=== PATIENT | male | born 1945 | race Caucasian/White ===

== ENCOUNTER 2016-03-31 20:22 | Inpatient (IN) | payer MEDICARE, MEDICAID ==
[~2016-03-31] VITALS: Ht 175.3 cm; Wt 77.6 kg
[~2016-03-31 20:22] MED LIST: AMLO5TAB4 PO; ASPI81TA2 PO; ATOR20TA PO; DOCU250C75 PO; ENAL20TA70 PO; FERR-58 PO; HYDR-3652 PO; METO25TA6 PO; TAMS0.4C34 PO; VALP250S11 PO
[2016-03-31] MEDS ORDERED: IV NS 0.9% 1,000 ML BAG IV ONE (21:00)
[2016-03-31] MEDS ORDERED: VANCOMYCIN 1 GM in IV D5W 250 ML IV ONE (21:00)
[2016-03-31] MEDS ORDERED: CEFTRIAXONE 1GM BAG (ER ONLY) 1 GM/50 ML PIGGYBACK IV ONE (21:00)
[2016-03-31 21:10] LABS: BASOPHILS # (AUTO) 0.1 /CMM (0.0-0.2); DIFF TOTAL % 100 %; EOSINOPHILS % (AUTO) 0.2 % (0.0-6.0); HEMATOCRIT 44 % (39-51); HEMOGLOBIN 14.2 g/dL (13.5-17.5); LYMPHOCYTES # (AUTO) 1.3 /CMM (0.8-4.8); LYMPHOCYTES % (AUTO) 22.3 % (20.0-44.0); MEAN CORPUSCULAR HEMOGLOBIN 31 PG (26.0-33.0); MEAN CORPUSCULAR HGB CONC 33 g/dl (31.0-36.0); MEAN CORPUSCULAR VOLUME 96 fL (80-96); MONOCYTES # (AUTO) 0.5 /CMM (0.1-1.30); MONOCYTES % (AUTO) 8.4 % (2.0-12.0); NEUTROPHILS % (AUTO) 67.1 % (43.0-81.0); PLATELET COUNT (AUTO) 206 /CMM (150-450); RED BLOOD CELL COUNT(AUTO) 4.58 MIL/uL (4.5-6.0); WHITE BLOOD COUNT (AUTO) 5.9 K/uL (4.3-11.0)
[2016-03-31 21:21] LABS: CALCIUM, SERUM 8.8 mg/dL (8.5-10.1); CREATININE 0.6 mg/dL (0.6-1.3); POTASSIUM 4.3 mmol/L (3.5-5.1)
[2016-03-31 21:26] LABS: ALBUMIN 3.2 g/dL (3.4-5.0); BILIRUBIN,DIRECT 0.1 mg/dL (0.0-0.2); BILIRUBIN,TOTAL 0.5 mg/dL (0.2-1.0); INDIRECT BILIRUBIN 0.4 mg/dL (0.0-1.1); INR 1.2 (0.87-1.13); PROTHROMBIN TIME 12.6 SECS (9.5-12.7); TOTAL PROTEIN, SERUM 6.7 g/dL (6.4-8.2)
[2016-03-31 21:31] LABS: LACTIC ACID 1.1 mmol/L (0.4-2.0)
[2016-03-31] MEDS ORDERED: VANCOMYCIN 1 GM VIAL ONE (21:38)
[2016-03-31] MEDS ORDERED: CEFTRIAXONE 1GM BAG (ER ONLY) 50 ML IV ONE (21:38)
[2016-03-31] MEDS ORDERED: IV SET PRIMARY 1 EA INFUS.SET MC ONE (21:39)
[2016-03-31] MEDS ORDERED: IV D5W 250 ML IV ONE (21:39)
[2016-03-31] MEDS ORDERED: IV NS 0.9% 1,000 ML ONE (21:39)
[2016-03-31] MEDS ORDERED: IV SET PRIMARY PUMP SET 1 EA INFUS.SET MC ONE (21:39)
[2016-03-31] MEDS ORDERED: LORA0.5T PO (22:19)
[2016-03-31] MEDS ORDERED: DILT60TA35 PO (22:19)
[2016-03-31] MEDS ORDERED: NA P133E RC (22:19)
[2016-03-31] MEDS ORDERED: TAMS-12 PO (22:19)
[2016-03-31] MEDS ORDERED: ALBU2.5V38 IH (22:19)
[2016-03-31] MEDS ORDERED: APIX5TAB PO (22:19)
[2016-03-31] MEDS ORDERED: DOCU-170 PO (22:19)
[2016-03-31] MEDS ORDERED: IPRA0.2S9 IH (22:19)
[2016-03-31] MEDS ORDERED: FURO-145 PO (22:19)
[2016-03-31] MEDS ORDERED: DIGO125T PO (22:19)
[2016-03-31] MEDS ORDERED: METO50TA3 PO (22:27)
[2016-03-31] MEDS ORDERED: ATOR10TA PO (22:27)
[2016-03-31] MEDS ORDERED: PRED20TA PO (22:27)
[2016-03-31] MEDS ORDERED: MAGN400T29 PO (22:27)
[2016-03-31] MEDS ORDERED: AMIN30LI27 PO (22:27)
[2016-03-31] MEDS ORDERED: MULT1TAB11 PO (22:27)
[2016-03-31] MEDS ORDERED: ACET-868 PO (22:50)
[2016-03-31] MEDS ORDERED: ONDA4TAB5 PO (22:50)
[2016-03-31] MEDS ORDERED: ASCO500T9 PO (22:50)
[2016-03-31] MEDS ORDERED: SENN-18 PO (22:50)
[2016-03-31] MEDS ORDERED: ZINC220C6 PO (22:50)
[2016-03-31] MEDS ORDERED: TRAZ-144 PO (22:50)
[2016-03-31] MEDS ORDERED: ENAL5TAB36 PO (22:50)
[2016-03-31] MEDS ORDERED: PANT40TA2 PO (22:50)
[2016-04-01] VITALS (9 sets, daily range): BP systolic 155–180; BP diastolic 64–116
[2016-04-01] MEDS ORDERED: ACETAMINOPHEN 325 MG TABLET PO PRN
[2016-04-01] MEDS ORDERED: IPRATROPIUM NEB FS 0.5 MG/2.5 ML AMPUL.NEB NEB PRN
[2016-04-01] MEDS ORDERED: ENOXAPARIN SODIUM 40 MG/0.4 ML DISP.SYRIN SQ SCH
[2016-04-01] MEDS ORDERED: ALBUTEROL FS 2.5 MG/0.5 ML VIAL.NEB NEB PRN
[2016-04-01] MEDS ORDERED: CEFEPIME 1 GM VIAL IM SCH
[2016-04-01] MEDS ORDERED: ONDANSETRON HCL/PF 4 MG/2 ML VIAL IV PRN
[2016-04-01] MEDS ORDERED: ENOXAPARIN SODIUM 40 MG/0.4 ML DISP.SYRIN SQ ONE (00:51)
[2016-04-01] MEDS ORDERED: IV SET PRIMARY PUMP SET 1 EA INFUS.SET MC ONE (00:51)
[2016-04-01] MEDS ORDERED: IV D5W 50 ML IV ONE (00:51)
[2016-04-01] MEDS ORDERED: CEFEPIME 1 GM in IV D5W 50 ML IV SCH ×2 (01:00→08:24)
[2016-04-01] MEDS ORDERED: CEFEPIME 1 GM VIAL ONE (01:22)
[2016-04-01] MEDS ORDERED: IV NS 0.9% 250 ML IV ONE (01:33)
[2016-04-01] MEDS ORDERED: ACETAMINOPHEN 325 MG TABLET ONE (03:26)
[2016-04-01] MEDS ORDERED: IPRATROPIUM NEB FS 0.5 MG/2.5 ML AMPUL.NEB NEB SCH ×2 (07:30)
[2016-04-01] MEDS ORDERED: ALBUTEROL FS 2.5 MG/0.5 ML VIAL.NEB NEB SCH ×2 (07:30)
[2016-04-01] MEDS ORDERED: FEE PK DOSING 1 MIN EA MC ONE (08:23)
[2016-04-01] MEDS: PANTOPRAZOLE 40 MG TABLET.DR PO SCH (08:42)
[2016-04-01] MEDS ORDERED: FUROSEMIDE 20 MG TABLET PO SCH (09:00)
[2016-04-01] MEDS ORDERED: NA PHOS,M-B/NA PHOS,DI-BA 1 EA ENEMA RC PRN (09:00)
[2016-04-01] MEDS: VANCOMYCIN 1 GM in IV D5W 250 ML IV SCH ×2 (09:27→21:33)
[2016-04-01] MEDS: DOCUSATE SODIUM 100 MG CAPSULE PO SCH ×2 (09:31→17:15)
[2016-04-01] MEDS: ZINC SULFATE 220 MG CAPSULE PO SCH (09:31)
[2016-04-01] MEDS: ASPIRIN 81 MG TAB.CHEW PO SCH (09:31)
[2016-04-01] MEDS: DIGOXIN 0.125 MG TABLET PO SCH (09:32)
[2016-04-01] MEDS: predniSONE 20 MG TABLET PO SCH (09:33)
[2016-04-01] MEDS: METOPROLOL TARTRATE 50 MG TABLET PO SCH ×2 (09:33→17:16)
[2016-04-01] MEDS: ASCORBIC ACID 500 MG TABLET PO SCH (09:33)
[2016-04-01] MEDS: SENNOSIDES 8.6 MG TABLET PO SCH ×2 (09:33→17:16)
[2016-04-01] MEDS: DILTIAZEM HCL 30 MG TABLET PO SCH ×3 (09:35→17:15)
[2016-04-01] MEDS ORDERED: SECONDARY IV SET 1 EA INFUS.SET MC ONE (09:36)
[2016-04-01] MEDS ORDERED: MAGNESIUM HYDROXIDE 30 ML UDC PO PRN (10:00)
[2016-04-01] MEDS: PROSOURCE / PROSTAT (PYXIS) 30 ML UDC PO SCH (10:23)
[2016-04-01] MEDS: DIVALPROEX SODIUM 250 MG TABLET.DR PO SCH ×2 (10:23→17:15)
[2016-04-01 10:42] LABS: ABG BASE EXCESS 9.7 mmol/L; ABG HCO3 37.4 mmol/L; ABG PCO2 64.9 mmHg (35.0-45.0); ABG PH 7.379 (7.350-7.450); ABG PO2 67.2 mmHg (75.0-100.0); ABG TOTAL HEMOGLOBIN 13.9 G/dL (13.5-18.0); ALLEN TEST Pass; AaDO2 114.2 mmHg; O2Hb 89.7 % (94.0-97.0)
[2016-04-01] MEDS: CEFEPIME 1 GM in IV D5W 50 ML IV SCH (12:39)
[2016-04-01] MEDS: LORAZEPAM 0.5 MG TABLET PO PRN (13:28)
[2016-04-01] MEDS: ALBUTEROL FS 2.5 MG/0.5 ML VIAL.NEB NEB SCH ×2 (13:49→20:05)
[2016-04-01] MEDS: IPRATROPIUM NEB FS 0.5 MG/2.5 ML AMPUL.NEB NEB SCH ×2 (13:49→20:05)
[2016-04-01] MEDS: Z GUARD REMEDY 2 OZ OINT TP SCH (16:17)
[2016-04-01] MEDS: CLOTRIMAZOLE 1% 15 GM TUBE TP SCH ×2 (16:17→16:45)
[2016-04-01] MEDS: Z GUARD REMEDY 2 OZ OINT TP PRN (16:17)
[2016-04-01] MEDS: FUROSEMIDE 20 MG/2 ML VIAL IV SCH (21:33)
[2016-04-01] MEDS: ATORVASTATIN 10 MG TABLET PO SCH (21:34)
[2016-04-01] MEDS: TAMSULOSIN 0.4 MG CAP.SR.24H PO SCH (21:34)
[2016-04-01] MEDS: TRAZODONE 50 MG TABLET PO SCH (21:34)
[2016-04-01] MEDS: ENOXAPARIN SODIUM 40 MG/0.4 ML DISP.SYRIN SQ SCH (21:35)
[2016-04-02] VITALS: BP_SYST 148; BP_SYST 152; BP_DIAS 121; BP_DIAS 95
[2016-04-02] MEDS: CEFEPIME 1 GM in IV D5W 50 ML IV SCH ×2 (00:05→12:47)
[2016-04-02] MEDS: LORAZEPAM 0.5 MG TABLET PO PRN ×2 (00:05→16:41)
[2016-04-02] MEDS: ALBUTEROL FS 2.5 MG/0.5 ML VIAL.NEB NEB SCH ×4 (01:30→20:35)
[2016-04-02] MEDS: IPRATROPIUM NEB FS 0.5 MG/2.5 ML AMPUL.NEB NEB SCH ×4 (01:30→20:36)
[2016-04-02 04:00] VITALS: BP 147/63
[2016-04-02 08:00] VITALS: BP_SYST 157; BP_SYST 177; BP_DIAS 111; BP_DIAS 75
[2016-04-02] MEDS: FUROSEMIDE 20 MG/2 ML VIAL IV SCH ×2 (08:32→16:41)
[2016-04-02] MEDS: PROSOURCE / PROSTAT (PYXIS) 30 ML UDC PO SCH (08:41)
[2016-04-02] MEDS: SENNOSIDES 8.6 MG TABLET PO SCH ×2 (08:41→16:41)
[2016-04-02] MEDS: DILTIAZEM HCL 30 MG TABLET PO SCH ×3 (08:42→16:42)
[2016-04-02] MEDS: DIGOXIN 0.125 MG TABLET PO SCH (08:43)
[2016-04-02] MEDS: PANTOPRAZOLE 40 MG TABLET.DR PO SCH (08:43)
[2016-04-02] MEDS: ZINC SULFATE 220 MG CAPSULE PO SCH (08:43)
[2016-04-02] MEDS: DOCUSATE SODIUM 100 MG CAPSULE PO SCH ×2 (08:43→16:41)
[2016-04-02] MEDS: METOPROLOL TARTRATE 50 MG TABLET PO SCH ×2 (08:44→16:41)
[2016-04-02] MEDS: DIVALPROEX SODIUM 250 MG TABLET.DR PO SCH ×2 (08:45→16:41)
[2016-04-02] MEDS: predniSONE 20 MG TABLET PO SCH (08:45)
[2016-04-02] MEDS: ASPIRIN 81 MG TAB.CHEW PO SCH (08:45)
[2016-04-02] MEDS: ASCORBIC ACID 500 MG TABLET PO SCH (08:45)
[2016-04-02] MEDS: MULTIVITAMINS,THERAPEUTIC 1 UDTAB TABLET PO SCH (08:45)
[2016-04-02] MEDS: CLOTRIMAZOLE 1% 15 GM TUBE TP SCH ×2 (09:00→16:41)
[2016-04-02] MEDS: Z GUARD REMEDY 2 OZ OINT TP SCH (09:00)
[2016-04-02 09:28] LABS: BASOPHILS % (AUTO) 0.5 % (0.0-2.0); DIFF TOTAL % 100 %; EOSINOPHILS # (AUTO) 0.1 /CMM (0.0-0.7); EOSINOPHILS % (AUTO) 1.3 % (0.0-6.0); HEMATOCRIT 47 % (39-51); HEMOGLOBIN 15.6 g/dL (13.5-17.5); LYMPHOCYTES # (AUTO) 1.6 /CMM (0.8-4.8); LYMPHOCYTES % (AUTO) 26.6 % (20.0-44.0); MEAN CORPUSCULAR HEMOGLOBIN 32 PG (26.0-33.0); MEAN CORPUSCULAR HGB CONC 33 g/dl (31.0-36.0); MEAN CORPUSCULAR VOLUME 96 fL (80-96); MONOCYTES # (AUTO) 0.7 /CMM (0.1-1.30); MONOCYTES % (AUTO) 11.9 % (2.0-12.0); NEUTROPHILS # (AUTO) 3.5 /CMM (1.8-8.9); NEUTROPHILS % (AUTO) 59.7 % (43.0-81.0); PLATELET COUNT (AUTO) 208 /CMM (150-450); RED BLOOD CELL COUNT(AUTO) 4.91 MIL/uL (4.5-6.0); WHITE BLOOD COUNT (AUTO) 5.9 K/uL (4.3-11.0)
[2016-04-02 09:38] LABS: CALCIUM, SERUM 8.7 mg/dL (8.5-10.1); CREATININE 0.6 mg/dL (0.6-1.3); POTASSIUM 3.7 mmol/L (3.5-5.1)
[2016-04-02] MEDS: VANCOMYCIN 1 GM in IV D5W 250 ML IV SCH ×2 (10:13→21:53)
[2016-04-02 12:00] VITALS: BP 136/58
[2016-04-02 16:00] VITALS: BP_SYST 150; BP_SYST 159; BP_DIAS 101
[2016-04-02] MEDS: VANCOMYCIN 0.75 GM in IV D5W 250 ML IV SCH (17:03)
[2016-04-02 20:00] VITALS: BP 148/85
[2016-04-02] MEDS: TAMSULOSIN 0.4 MG CAP.SR.24H PO SCH (21:03)
[2016-04-02] MEDS: ATORVASTATIN 10 MG TABLET PO SCH (21:03)
[2016-04-02] MEDS: TRAZODONE 50 MG TABLET PO SCH (21:03)
[2016-04-02] MEDS: ENOXAPARIN SODIUM 40 MG/0.4 ML DISP.SYRIN SQ SCH (21:03)
[2016-04-03] VITALS (7 sets, daily range): BP systolic 148–169; BP diastolic 78–108
[2016-04-03] MEDS: CEFEPIME 1 GM in IV D5W 50 ML IV SCH ×2 (01:11→12:28)
[2016-04-03] MEDS: IPRATROPIUM NEB FS 0.5 MG/2.5 ML AMPUL.NEB NEB SCH ×4 (01:59→20:44)
[2016-04-03] MEDS: ALBUTEROL FS 2.5 MG/0.5 ML VIAL.NEB NEB SCH ×4 (02:00→20:44)
[2016-04-03] MEDS: VANCOMYCIN 0.75 GM in IV D5W 250 ML IV SCH ×3 (03:39→18:02)
[2016-04-03] MEDS: PROSOURCE / PROSTAT (PYXIS) 30 ML UDC PO SCH (09:30)
[2016-04-03] MEDS: predniSONE 20 MG TABLET PO SCH (09:30)
[2016-04-03] MEDS: SENNOSIDES 8.6 MG TABLET PO SCH ×2 (09:30→16:44)
[2016-04-03] MEDS: ASPIRIN 81 MG TAB.CHEW PO SCH (09:31)
[2016-04-03] MEDS: METOPROLOL TARTRATE 50 MG TABLET PO SCH ×2 (09:31→16:44)
[2016-04-03] MEDS: MULTIVITAMINS,THERAPEUTIC 1 UDTAB TABLET PO SCH (09:31)
[2016-04-03] MEDS: DIVALPROEX SODIUM 250 MG TABLET.DR PO SCH ×2 (09:31→16:44)
[2016-04-03] MEDS: ZINC SULFATE 220 MG CAPSULE PO SCH (09:31)
[2016-04-03] MEDS: DOCUSATE SODIUM 100 MG CAPSULE PO SCH ×2 (09:31→16:42)
[2016-04-03] MEDS: PANTOPRAZOLE 40 MG TABLET.DR PO SCH (09:31)
[2016-04-03] MEDS: ASCORBIC ACID 500 MG TABLET PO SCH (09:31)
[2016-04-03] MEDS: DIGOXIN 0.125 MG TABLET PO SCH (09:31)
[2016-04-03] MEDS: DILTIAZEM HCL 30 MG TABLET PO SCH ×3 (09:32→18:15)
[2016-04-03] MEDS: CLOTRIMAZOLE 1% 15 GM TUBE TP SCH ×2 (09:43→16:51)
[2016-04-03] MEDS: Z GUARD REMEDY 2 OZ OINT TP SCH (09:44)
[2016-04-03] MEDS: ENOXAPARIN SODIUM 40 MG/0.4 ML DISP.SYRIN SQ SCH (20:47)
[2016-04-03] MEDS: TRAZODONE 50 MG TABLET PO SCH (21:05)
[2016-04-03] MEDS: ATORVASTATIN 10 MG TABLET PO SCH (21:05)
[2016-04-03] MEDS: TAMSULOSIN 0.4 MG CAP.SR.24H PO SCH (21:05)
[2016-04-04] MEDS: CEFEPIME 1 GM in IV D5W 50 ML IV SCH (01:09)
[2016-04-04] MEDS: IPRATROPIUM NEB FS 0.5 MG/2.5 ML AMPUL.NEB NEB SCH ×3 (01:30→13:30)
[2016-04-04] MEDS: ALBUTEROL FS 2.5 MG/0.5 ML VIAL.NEB NEB SCH ×3 (01:30→13:30)
[2016-04-04 08:00] VITALS: BP 166/97
[2016-04-04] MEDS ORDERED: predniSONE 20 MG TABLET PO SCH (09:00)
[2016-04-04 09:34] LABS: CALCIUM, SERUM 8.7 mg/dL (8.5-10.1); CREATININE 0.7 mg/dL (0.6-1.3); POTASSIUM 3.3 mmol/L (3.5-5.1)
[2016-04-04] MEDS: PROSOURCE / PROSTAT (PYXIS) 30 ML UDC PO SCH (09:40)
[2016-04-04] MEDS: DOCUSATE SODIUM 100 MG CAPSULE PO SCH (09:41)
[2016-04-04] MEDS: SENNOSIDES 8.6 MG TABLET PO SCH (09:41)
[2016-04-04] MEDS: DILTIAZEM HCL 30 MG TABLET PO SCH ×2 (09:41→13:00)
[2016-04-04] MEDS: ZINC SULFATE 220 MG CAPSULE PO SCH (09:41)
[2016-04-04] MEDS: PANTOPRAZOLE 40 MG TABLET.DR PO SCH (09:42)
[2016-04-04] MEDS: DIVALPROEX SODIUM 250 MG TABLET.DR PO SCH (09:42)
[2016-04-04] MEDS: MULTIVITAMINS,THERAPEUTIC 1 UDTAB TABLET PO SCH (09:42)
[2016-04-04] MEDS: METOPROLOL TARTRATE 50 MG TABLET PO SCH (09:42)
[2016-04-04] MEDS: ASCORBIC ACID 500 MG TABLET PO SCH (09:42)
[2016-04-04] MEDS: DIGOXIN 0.125 MG TABLET PO SCH (09:50)
[2016-04-04] MEDS: Z GUARD REMEDY 2 OZ OINT TP PRN ×2 (09:50→09:51)
[2016-04-04] MEDS: CLOTRIMAZOLE 1% 15 GM TUBE TP SCH (09:50)
[2016-04-04] MEDS: ASPIRIN 81 MG TAB.CHEW PO SCH (09:51)
[2016-04-04] MEDS: Z GUARD REMEDY 2 OZ OINT TP SCH (09:52)
[2016-04-04] MEDS ORDERED: POTASSIUM CHLORIDE 20 MEQ TAB.PRT.SR PO ONE (11:00)
[2016-04-04 13:00] VITALS: BP 144/88
== END 2016-04-04 14:45 | DRG 177 ==
LOC: ER 20:23 → TELE1 22:31 → MED 04-02 12:34 → TELE 04-02 12:39 → MED 04-03 10:49
PROVIDERS: ADMIT Internal Medicine; ATTEND Internal Medicine
DX: J69.0 Pneumonitis due to inhalation of food and vomit (principal); J96.01 Acute respiratory failure with hypoxia; I50.33 Acute on chronic diastolic (congestive) heart failure; J96.02 Acute respiratory failure with hypercapnia; J44.1 Chronic obstructive pulmonary disease with (acute) exacerbation; I69.351 Hemiplegia and hemiparesis following cerebral infarction affecting right dominant side; J90 Pleural effusion, not elsewhere classified; R13.10 Dysphagia, unspecified; D64.9 Anemia, unspecified; E78.5 Hyperlipidemia, unspecified; F17.200 Nicotine dependence, unspecified, uncomplicated; I48.0 Paroxysmal atrial fibrillation; N40.0 Benign prostatic hyperplasia without lower urinary tract symptoms; Z79.01 Long term (current) use of anticoagulants; I11.0 Hypertensive heart disease with heart failure; Z86.011 Personal history of benign neoplasm of the brain; Z87.01 Personal history of pneumonia (recurrent)
CPT/HCPCS: 36415; 36600; 71010-TC; 80048-TC; 80076-TC; 80162-TC; 80202-TC; 83605-TC; 85025-TC; 85730-TC; 87040-TC; 87081-TC; 92521; 93307-TC; 94799-TC; A4606; A6402; J0692; J0696; J1650; J1940; J3370; J7030; J7050; J7060; Z7610

== ENCOUNTER 2016-10-19 10:59 | Inpatient (IN) | payer MEDICARE, MEDICAID ==
[~2016-10-19] VITALS: Ht 172.7 cm; Wt 71.2 kg
[~2016-10-19 10:59] MED LIST changes: +AMIN30LI27 PO; -AMLO5TAB4 PO; +APIX5TAB PO; +ASCO500T9 PO; +ATOR10TA PO; -ATOR20TA PO; +DIGO125T PO; +DILT60TA35 PO; +DOCU-170 PO; -DOCU250C75 PO; -ENAL20TA70 PO; +ENAL5TAB36 PO; -FERR-58 PO; +FURO-145 PO; -HYDR-3652 PO; +LORA0.5T PO; +MAGN400T29 PO; -METO25TA6 PO; +METO50TA3 PO; +MULT1TAB11 PO; +NA P133E RC; +PRED20TA PO; +SENN-18 PO; +TAMS-12 PO; -TAMS0.4C34 PO; +TRAZ-144 PO; +ZINC220C6 PO
[2016-10-19] MEDS ORDERED: LEVOFLOXACIN 750 MG /D5W 150ML 150 ML IV ONE ×2 (11:22→11:30)
[2016-10-19 11:29] LABS: BASOPHILS # (AUTO) 0.2 /CMM (0.0-0.2); BASOPHILS % (AUTO) 2.6 % (0.0-2.0); EOSINOPHILS % (AUTO) 0.5 % (0.0-6.0); HEMATOCRIT 46 % (39-51); HEMOGLOBIN 14.9 g/dL (13.5-17.5); LYMPHOCYTES # (AUTO) 0.9 /CMM (0.8-4.8); LYMPHOCYTES % (AUTO) 11.1 % (20.0-44.0); MEAN CORPUSCULAR HEMOGLOBIN 28 PG (26.0-33.0); MEAN CORPUSCULAR HGB CONC 32 g/dl (31.0-36.0); MEAN CORPUSCULAR VOLUME 88 fL (80-96); MONOCYTES # (AUTO) 0.5 /CMM (0.1-1.30); MONOCYTES % (AUTO) 6.1 % (2.0-12.0); NEUTROPHILS # (AUTO) 6.4 /CMM (1.8-8.9); NEUTROPHILS % (AUTO) 79.7 % (43.0-81.0); PLATELET COUNT (AUTO) 189 /CMM (150-450); RDW COEFFICIENT OF VARIATION 16.6 (11.5-15.0); RED BLOOD CELL COUNT(AUTO) 5.26 MIL/uL (4.5-6.0)
[2016-10-19] MEDS ORDERED: VANCOMYCIN 1 GM in IV D5W 250 ML IV ONE (11:30)
[2016-10-19] MEDS ORDERED: PIPERACILLIN /TAZOBACTAM 3.375 G in IV D5W 50 ML IV ONE (11:30)
[2016-10-19 11:31] LABS: APPEARANCE,URINE Clear (CLEAR); BILIRUBIN,URINE Negative (NEGATIVE); BLOOD, URINE Trace-intact Ery/uL (NEGATIVE); COLOR,URINE Yellow (YELLOW); KETONES,URINE Negative (NEGATIVE); LEUKOCYTE ESTERASE ,URINE Negative (NEGATIVE); NITRITE, URINE Negative (NEGATIVE); PH,URINE 8.5 (5.0-8.0); PROTEIN,URINE 30 mg/dl (NEGATIVE); UGLUCOSE Negative (NEGATIVE); UROBILINOGEN,URINE 0.2 EU/dL (0.2)
[2016-10-19 11:38] LABS: BACTERIA,URINE Rare /HPF (None Seen); SQUAMOUS EPITHELIAL CELL,UR Few /HPF (None Seen); WBC,URINE 0-3 /HPF (0-3)
[2016-10-19 11:39] LABS: URINE AMORPHOUS PHOSPHATES Moderate /HPF (None Seen)
[2016-10-19 11:39] LABS: CALCIUM, SERUM 8.5 mg/dL (8.5-10.1); CARBON DIOXIDE 34 mmol/L (21-32); CHLORIDE 99 mmol/L (98-107); CREATININE 0.5 mg/dL (0.6-1.3); GLUCOSE 120 mg/dL (74-106); POTASSIUM 3.2 mmol/L (3.5-5.1); SODIUM SERUM 137 mmol/L (136-145); UREA NITROGEN, BLOOD 10 mg/dL (7-18)
[2016-10-19 11:43] LABS: INR 1.15 (0.87-1.13); PROTHROMBIN TIME 12.1 SECS (9.5-12.7)
[2016-10-19 11:45] LABS: ALANINE AMINOTRANSFERASE 12 U/L (12-78); ALBUMIN 3.7 g/dL (3.4-5.0); ALKALINE PHOSPHATASE 54 U/L (46-116); ASPARTATE AMINOTRANSFERASE 16 U/L (15-37); BILIRUBIN,DIRECT 0.2 mg/dL (0.0-0.2); BILIRUBIN,TOTAL 0.7 mg/dL (0.2-1.0); TOTAL PROTEIN, SERUM 6.8 g/dL (6.4-8.2)
[2016-10-19 11:47] LABS: TROPONIN I < 0.017 ng/mL (0.00-0.056)
[2016-10-19 12:40] VITALS: BP 133/69
[2016-10-19] MEDS ORDERED: Z GUARD REMEDY 4 OZ OINT TP PRN (15:00)
[2016-10-19 16:00] VITALS: BP 124/87
[2016-10-19] MEDS ORDERED: LORAZEPAM INJ 2 MG/ML VIAL IV PRN (17:00)
[2016-10-19] MEDS ORDERED: LORAZEPAM INJ 2 MG/ML VIAL IV ONE (17:00)
[2016-10-19] MEDS ORDERED: ALBUTEROL FS 2.5 MG/0.5 ML VIAL.NEB NEB PRN ×2 (17:00)
[2016-10-19] MEDS ORDERED: DOCUSATE SODIUM 100 MG CAPSULE PO SCH (17:00)
[2016-10-19] MEDS ORDERED: DILTIAZEM HCL 30 MG TABLET PO SCH (17:00)
[2016-10-19] MEDS ORDERED: IPRATROPIUM NEB FS 0.5 MG/2.5 ML AMPUL.NEB NEB PRN (17:00)
[2016-10-19] MEDS ORDERED: ALBUTEROL FS 2.5 MG/0.5 ML VIAL.NEB NEB SCH ×2 (17:05→17:06)
[2016-10-19] MEDS ORDERED: hydrALAZINE HCL IV 20 MG VIAL IV PRN (17:30)
[2016-10-19] MEDS ORDERED: FEE PK DOSING 1 MIN EA MC ONE (17:35)
[2016-10-19] MEDS ORDERED: PIPERACILLIN /TAZOBACTAM 3.375 G in IV D5W 50 ML IV SCH (18:00)
[2016-10-19] MEDS ORDERED: PIPERACILLIN /TAZOBACTAM 4.5 G in IV D5W 50 ML IV SCH (18:00)
[2016-10-19] MEDS ORDERED: NICARDIPINE IN DEXTROSE,ISO-OS 200 ML IV PRN (19:00)
[2016-10-19] MEDS ORDERED: IPRATROPIUM NEB FS 0.5 MG/2.5 ML AMPUL.NEB NEB SCH (19:30)
[2016-10-19] MEDS ORDERED: DIVALPROEX SODIUM 250 MG TABLET.DR PO SCH (21:00)
[2016-10-19] MEDS ORDERED: METOPROLOL TARTRATE 25 MG TABLET PO SCH (21:00)
[2016-10-19] MEDS ORDERED: ATORVASTATIN 10 MG TABLET PO SCH (22:00)
[2016-10-19] MEDS ORDERED: TRAZODONE 50 MG TABLET PO SCH (22:00)
[2016-10-19] MEDS ORDERED: SENNOSIDES 8.6 MG TABLET PO SCH (22:00)
[2016-10-19] MEDS ORDERED: TAMSULOSIN 0.4 MG CAP.SR.24H PO SCH (22:00)
[2016-10-19] MEDS ORDERED: VANCOMYCIN 1 GM in IV D5W 250 ML IV SCH (23:00)
[2016-10-20] MEDS ORDERED: ASPIRIN EC 81 MG TABLET.DR PO SCH (09:00)
[2016-10-20] MEDS ORDERED: DIGOXIN 0.125 MG TABLET PO SCH (13:00)
[2016-10-20] MEDS ORDERED: methylPREDNISolone SOD SUCC 125 MG/2ML VIAL ONE (19:51)
[2016-10-20] MEDS ORDERED: Magnesium 1GM/D5W 100ML PREMIX 200 ML IV ONE (19:52)
== END 2016-10-19 19:22 | disposition short-term general hospital (02) | DRG 64 ==
LOC: ER 11:03 → TELE 12:16 → ICU 18:37 → TELE 19:01
PROVIDERS: ADMIT Internal Medicine; ATTEND Internal Medicine
DX: I62.9 Nontraumatic intracranial hemorrhage, unspecified (principal); J18.9 Pneumonia, unspecified organism; I69.351 Hemiplegia and hemiparesis following cerebral infarction affecting right dominant side; N13.30 Unspecified hydronephrosis; J44.0 Chronic obstructive pulmonary disease with (acute) lower respiratory infection; R13.10 Dysphagia, unspecified; I48.91 Unspecified atrial fibrillation; I16.1 Hypertensive emergency; N40.0 Benign prostatic hyperplasia without lower urinary tract symptoms; F41.9 Anxiety disorder, unspecified; F17.200 Nicotine dependence, unspecified, uncomplicated; K59.00 Constipation, unspecified; Z90.79 Acquired absence of other genital organ(s); Z86.011 Personal history of benign neoplasm of the brain; E78.5 Hyperlipidemia, unspecified
CPT/HCPCS: 36415; 70450-TC; 71010-TC; 80048-TC; 80076-TC; 81000-TC; 83605-TC; 84484-TC; 85025-TC; 85730-TC; 87040-TC; 87081-TC; 87086-TC; A4606; J1956; J2060; J2543; J2930; J3370; J3475; J7060; Z7610